=== PATIENT | male | born 1995 | race African-American/Black ===

== ENCOUNTER 2018-09-22 18:25 | Emergency (ER) | payer BC ==
[~2018-09-22] VITALS: Ht 170.2 cm; Wt 65.8 kg
[2018-09-22 18:32] VITALS: BP 110/67
== END 2018-09-22 19:20 | disposition home or self-care (01) ==
LOC: EDBD 18:25 → ER 18:25
DX: H61.23 Impacted cerumen, bilateral (principal)

== ENCOUNTER 2019-05-16 22:31 | Emergency (ER) | payer BC, OTHER ==
[~2019-05-16] VITALS: Ht 175.3 cm; Wt 81.7 kg
[2019-05-16 22:32] VITALS: BP 125/83
[2019-05-16 22:52] LABS: URINE BILIRUBIN NEGATIVE (Negative); URINE BLOOD NEGATIVE (Negative); URINE CLARITY CLEAR; URINE COLOR YELLOW; URINE GLUCOSE-RANDOM* NEGATIVE (Negative); URINE KETONES NEGATIVE (Negative); URINE LEUKOCYTES-REFLEX NEGATIVE (Negative); URINE NITRITE-REFLEX NEGATIVE (Negative); URINE PROTEIN (DIPSTICK) NEGATIVE (Negative); URINE SPECIFIC GRAVITY <= 1.005 (1.005-1.035); URINE UROBILINOGEN 0.2 E.U./dl (0.2-1.0)
== END 2019-05-16 23:29 | disposition home or self-care (01) ==
LOC: ER 22:31
PROVIDERS: Physician Assistant
DX: R30.0 Dysuria (principal)

== ENCOUNTER 2021-06-21 15:37 | Emergency (ER) | payer OTHER ==
[~2021-06-21] VITALS: Ht 180.3 cm; Wt 79.4 kg
[2021-06-21 15:46] VITALS: BP 134/87
== END 2021-06-21 16:20 | disposition home or self-care (01) ==
LOC: ER 15:37
PROVIDERS: Physician Assistant
DX: U07.1 COVID-19 (principal); B34.9 Viral infection, unspecified

== ENCOUNTER 2021-07-09 19:03 | Emergency (ER) | payer OTHER ==
[~2021-07-09] VITALS: Ht 177.8 cm; Wt 77.1 kg
[2021-07-09 19:21] VITALS: BP 155/89
--- NOTE | 2021-07-10 09:14 | EKG ---
[address] [address] ELECTROCARDIOGRAM REPORT Name: CHUCKY FAUSTIN Room #: 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
== END 2021-07-09 20:43 | disposition home or self-care (01) ==
LOC: ER 19:03
DX: R07.89 Other chest pain (principal)